=== PATIENT | male | born 1995 | race Caucasian/White ===

== ENCOUNTER 2021-01-25 16:32 | Emergency (ER) | payer MEDICAID ==
[~2021-01-25] VITALS: Ht 175.3 cm; Wt 70.9 kg
[~2021-01-25 16:32] MED LIST: DIPH-423 PO; FAMO-129 PO; IBUP-812 PO; NO HOME MEDS; PRED20TA PO
[2021-01-25 16:41] VITALS: BP 121/76
[2021-01-25] MEDS ORDERED: IBUP-1984 PO (17:33)
[2021-01-25] MEDS ORDERED: CYCL-1 PO (17:33)
== END 2021-01-25 17:41 | disposition home or self-care (01) ==
LOC: ER 16:33
DX: R07.89 Other chest pain (principal); M54.6 Pain in thoracic spine; Z79.899 Other long term (current) drug therapy
CPT/HCPCS: 71045; 93005; 99283

== ENCOUNTER 2022-04-15 14:54 | Emergency (ER) | payer MEDICAID ==
[~2022-04-15] VITALS: Ht 167.6 cm; Wt 52.7 kg
[~2022-04-15 14:54] MED LIST changes: +CYCL-1 PO
[2022-04-15 16:04] VITALS: BP 132/83
[2022-04-15] MEDS ORDERED: TETanus/Pertussis (Acell)/Diphther VAC/PF (Tdap-Adult) 0.5ml syringe IMVAC ONE (16:45)
--- NOTE | 2022-04-15 16:50 | NUR ---
Wound care provided to pt's hands.
--- NOTE | 2022-04-15 17:05 | NUR ---
MD made aware pt would like to leave.
--- NOTE | 2022-04-15 17:16 | NUR ---
MD aware pt left AMA
[2022-04-16] MEDS ORDERED: BACI1PAC7 TP (14:51)
== END 2022-04-15 17:22 | disposition left against medical advice (07) ==
LOC: ER 14:54
DX: T23.222A Burn of second degree of single left finger (nail) except thumb, initial encounter (principal); Z79.899 Other long term (current) drug therapy; X08.8XXA Exposure to other specified smoke, fire and flames, initial encounter; Y93.89 Activity, other specified; Y92.89 Other specified places as the place of occurrence of the external cause; Y99.8 Other external cause status
CPT/HCPCS: 16020; 99282

== ENCOUNTER 2022-11-03 01:00 | Emergency (ER) | payer MEDICAID ==
[~2022-11-03] VITALS: Ht 167.6 cm; Wt 68.2 kg
[2022-11-03 01:28] VITALS: BP 128/80; PULSE 70; RESP 16; TEMP 98.1; O2SAT 99
== END 2022-11-03 02:49 | disposition left against medical advice (07) ==
LOC: ER 01:01
DX: K08.89 Other specified disorders of teeth and supporting structures (principal); Z53.21 Procedure and treatment not carried out due to patient leaving prior to being seen by health care provider
CPT/HCPCS: 99281

== ENCOUNTER 2025-01-31 03:52 | Emergency (ER) | payer MEDICAID, OTHER ==
[~2025-01-31] VITALS: Ht 167.6 cm; Wt 67.4 kg
--- NOTE | 2025-01-31 04:11 | Physician Documentation ---
History of Present Illness General Chief Complaint: Tooth Problem Stated Complaint: ABCESS TOOTH Time Seen by MD: 04:11 Primary Medical Doctor: MOTHER DENIES PMD History of Present Illness Initial Comments Patient is a 29-year-old male complains of dental pain over the last three days the patient states he has had pain and swelling to a left upper tooth. The patient states he has tried to get in to a dentist but was unsuccessful. The patient denies any fevers or chills he states the pain is moderate and persistent. The patient denies any other significant medical problems. Medication Reconciliation Allergies: Coded Allergies: No Known Allergies (Unverified , 04/15/22) Scheduled Cyclobenzaprine* (Cyclobenzaprine*), 1 TAB PO Q8H Diphenhydramine Hcl (Benadryl), 50 MG PO BID PRN ITCHING Famotidine (Pepcid), 40 MG PO DAILY Ibuprofen (Motrin), 400 MG PO TID Prednisone* (Prednisone*), 3 TAB PO DAILY Miscellaneous Medications Home Med List (No Home Medications), (Reported) Past Medical History Past Medical History: No Pertinent History Past Surgical History: no surgical history Smoking: Non-Smoker Alcohol Use: None Drug Use: none Lives with: Mother, Father Occupation: student Review of Systems All Other Systems at this time: Reviewed and Negative Physical Exam Physical Exam Vital Signs: Temperature: 97.7, Heart Rate: 80, Respiratory Rate: 16, BP: 114/63, Pulse Oximetry: 99, Weight: 67.400 Physical Exam VITALS: Reviewed and as above. GENERAL: Alert, no apparent distress. HEENT: Normocephalic, atraumatic, PERRL, EOMI, dry mucosa, no erythema the patient has swelling of the left cheek he also has a carried cracked tooth left upper tooth number 13, he is missing tooth 14 and 16 he has some fluctuance at the gingival buccal recess BACK: No CVA tenderness, or swelling MUSCULOSKELETAL: No deformities, no edema SKIN: Warm and dry, no rash NEURO: Oriented x4, No motor or sensory deficit PSYCH: Normal mood and affect, no agitation Progress Results/Orders Results/Orders Vital Signs 01/31/25 03:56 Temp 97.7 Pulse 80 Resp 16 B/P (MAP) 114/63 Pulse Ox 99 Medical Decision Making Findings The patient presents with a periapical abscess he was offered incision and drainage and topical numbing he is refusing that he wants a shot of Toradol and he has been given a dose of amoxicillin and sent home with instructions to follow up with a dentist and to take amoxicillin. Any prior hospitalizations were reviewed, the patient's pulse oximetry was interpreted as normal and adequate Departure Time of Disposition: 04:20 Disposition: 01 HOME / SELF CARE / HOMELESS Impression: Primary Impression: Dental abscess Discharge Instructions: Dental Abscess Additional Instructions: Use ibuprofen 600 mg every 6 hours for pain, use the amoxicillin as prescribed. Follow up with the dental resources that you are given. Return for significant worsening of your symptoms. Referrals: NO PRIMARY CARE PROVIDER (PCP) ANASTACIA BROWN MD Jan 31, 2025 04:11
[2025-01-31] MEDS ORDERED: AMOX-101 PO (04:21)
[2025-01-31] MEDS: ketorolac trometh 15mg/ml vial 15 MG/ML ML IM ONE (04:27)
[2025-01-31 04:32] VITALS: BP 116/62; PULSE 79; RESP 18; TEMP 98.6; O2SAT 99
== END 2025-01-31 04:33 | disposition home or self-care (01) ==
LOC: ER 03:53
DX: K04.7 Periapical abscess without sinus (principal); Z79.899 Other long term (current) drug therapy
CPT/HCPCS: 96372; 99283; J1885